=== PATIENT | female | born 2000 | race Caucasian/White ===

== ENCOUNTER → 2023-12-01 10:04 | Outpatient (REF) | payer BC, SELFPAY ==
[2023-12-02 20:46] LABS: Alternaria tenuis <0.10 kU/L (<=0.34); Aspergillus fumigatus <0.10 kU/L (<=0.34); Bermuda Grass 0.97 kU/L (<=0.34); Birch Tree 1.09 kU/L (<=0.34); Box Elder/Maple Tree 0.39 kU/L (<=0.34); Cat Epithelium/Dander 1.53 kU/L (<=0.34); Common Pigweed <0.10 kU/L (<=0.34); Common/Short Ragweed 1.92 kU/L (<=0.34); Cottonwood Tree 0.14 kU/L (<=0.34); Elm Tree 0.32 kU/L (<=0.34); German Cockroach <0.10 kU/L (<=0.34); Hormodendrum <0.10 kU/L (<=0.34); IgE 498 kU/L (<=214); Mouse Epithelium <0.10 kU/L (<=0.34); Mucor racemosus <0.10 kU/L (<=0.34); Mugwort Weed <0.10 kU/L (<=0.34); Oak Tree 3.85 kU/L (<=0.34); Penicillium notatum <0.10 kU/L (<=0.34); Sheep Sorrel Weed 0.31 kU/L (<=0.34); Sycamore Tree 0.32 kU/L (<=0.34); White Ash Tree 0.37 kU/L (<=0.34); White Mulberry Tree <0.10 kU/L (<=0.34)
== END ==
LOC: CLAB 10:04
PROVIDERS: ATTENDING PHYSICIAN Internal Medicine
DX: J30.9 Allergic rhinitis, unspecified (principal); H10.45 Other chronic allergic conjunctivitis; T78.1XXA Other adverse food reactions, not elsewhere classified, initial encounter; L50.0 Allergic urticaria
CPT/HCPCS: 82785; 86003

== ENCOUNTER → 2024-05-05 10:31 | Outpatient (REF) | payer BC, SELFPAY ==
[2024-05-07 05:13] LABS: IgA 165 mg/dl (70-400)
== END ==
LOC: CLAB 10:31
PROVIDERS: ATTENDING PHYSICIAN Internal Medicine
DX: R10.9 Unspecified abdominal pain (principal)
CPT/HCPCS: 36415; 82784; 83516; 86231